=== PATIENT | female | born 1955 | race Caucasian/White ===

== ENCOUNTER 2017-05-15 19:46 | Emergency (ER) | payer BC ==
[~2017-05-15] VITALS: Ht 165.1 cm; Wt 62.4 kg
[2017-05-15] MEDS ORDERED: PLEASE ENTER ALLERGIES MC SCH ×2 (20:00)
[2017-05-15] MEDS ORDERED: PLEASE ENTER HEIGHT AND WEIGHT MC SCH (20:00)
[2017-05-15] MEDS ORDERED: ASPIRIN 81 MG TABLET CHEW PO ONE (20:00)
[2017-05-15 20:18] LABS: HEMATOCRIT 44.7 % (34.6-47.8); HEMOGLOBIN 14.9 g/dL (11.7-16.4)
[2017-05-15 20:28] LABS: BLOOD UREA NITROGEN 8 mg/dL (7-18)
[2017-05-15 20:34] LABS: IS PT STATUS REG ER OR PRE ER? YES
[2017-05-15] MEDS ORDERED: ASPIRIN 81 MG TABLET CHEW ONE (20:40)
[2017-05-15 20:51] VITALS: BP 137/73
[2017-05-15] MEDS ORDERED: LEVO88TA4 PO (20:51)
== END 2017-05-15 21:25 | disposition home or self-care (01) ==
LOC: ED 20:55
DX: B34.9 Viral infection, unspecified (principal); J20.9 Acute bronchitis, unspecified; F17.210 Nicotine dependence, cigarettes, uncomplicated
CPT/HCPCS: 36415; 71010; 80048; 82040; 84484; 85025; 93005; 99285